=== PATIENT | female | born 1990 | race Caucasian/White ===

== ENCOUNTER 2017-11-30 10:33 | Outpatient (CLI) | payer OTHER, MEDICAID ==
[~2017-11-30] VITALS: Ht 160 cm; Wt 84.8 kg
[2017-11-30 10:41] VITALS: BP 134/78
[2017-11-30 11:20] LABS: BILIRUBIN,URINE NEGATIVE (NEGATIVE); CLARITY,URINE SLIGHTLY CLOUDY; COLOR,URINE YELLOW; GLUCOSE, URINE (UA) 4+ (NEGATIVE); KETONES,URINE NEGATIVE (NEGATIVE); LEUKOCYTE ESTERASE ,URINE 1+ (NEGATIVE); NITRITE,URINE NEGATIVE (NEGATIVE); PH,URINE 7 (5-9); PROTEIN,URINE 1+ (NEGATIVE); UROBILINOGEN,URINE NORMAL (NORMAL)
[2017-11-30 11:31] LABS: BACTERIA,URINE FEW /HPF; SQUAMOUS EPITHELIAL CELL,UR 25-50 /HPF; URINE OTHER FEW SPERM /HPF
--- NOTE | 2017-11-30 12:39 | Diagnostic Imaging Report ---
EXAMINATION: Limited ultrasound INDICATION: Trauma No prior studies available for comparison. There is a single live fetus in cephalic presentation. heart motion was noted at rate of 160 bpm and was recorded. There were no obvious abnormalities identified. The growth parameters were not obtained for this study. The amniotic fluid volume is within normal limits. The placenta is posterior and there is no previa. There is no sign of abruption either. The cervix was identified and measures 5 cm in length. The cervix does appear to be closed. IMPRESSION: 1. There is a single live fetus in cephalic presentation. 2. The placenta is posterior and intact and there is no previa. 3. The amniotic fluid volume is within normal limits. Dictated by: Dictated on workstation # [id number]
[2017-11-30 14:00] VITALS: BP 121/65
[2017-11-30] MEDS ORDERED: ACETAMINOPHEN 500 MG TAB (TYLENOL) PO NR (14:00)
--- NOTE | 2017-12-04 22:18 | Physician Query-Final Dx ---
NICOLAS DIEZ 12/04/17 2218: Clinic Account Progress/Dx Physician Query: Please give diagnosis Please provide diagnosis and weeks of gestation. Date of Service Nov 30, 2017 at 10:33 LAURA GIBSON DO 12/12/17 1640: Clinic Account Progress/Dx DIAGNOSIS: Diagnosis 26 week IUP Fall in NICOLAS DIEZ Dec 04, 2017 22:18 LAURA GIBSON DO Dec 12, 2017 16:40
== END 2017-11-30 16:15 | disposition home or self-care (01) ==
LOC: WSo 10:33 → LDRP 10:34 → WS 15:19 → WSo 16:15
PROVIDERS: ATTEND Obstetrics & Gynecology
DX: Z04.3 Encounter for examination and observation following other accident (principal); Z3A.26 26 weeks gestation of pregnancy
CPT/HCPCS: 76815; 81000; 86850; 86900; 86901; 87088; 99213